=== PATIENT | female | born 1985 ===

== ENCOUNTER → 2017-01-22 | Outpatient (CLI) | payer BC | END | disposition home or self-care (01) | LOC: C.PAPS 09:20 | PROVIDERS: ATTEND Obstetrics & Gynecology | DX: Z01.419 Encounter for gynecological examination (general) (routine) without abnormal findings (principal) ==

== ENCOUNTER → 2017-09-30 | Outpatient (CLI) | payer BC | END | disposition home or self-care (01) | LOC: C.PAPS 10:10 | PROVIDERS: ATTEND Obstetrics & Gynecology | DX: D06.9 Carcinoma in situ of cervix, unspecified (principal) ==